=== PATIENT | female | born 2000 | race Caucasian/White ===

== ENCOUNTER 2019-11-28 21:43 | Emergency (ER) | payer OTHER ==
[~2019-11-28] VITALS: Ht 160 cm; Wt 53.1 kg
[2019-11-28] MEDS ORDERED: ENBRACE HR SOF1 EACH PO (21:55)
[2019-11-28] MEDS ORDERED: CLINDAMYCIN (21:56)
[2019-11-28] MEDS ORDERED: LORCET 5-325 M1 EACH PO (23:01)
[2019-11-28 23:18] VITALS: BP 122/76
== END 2019-11-28 23:19 | disposition home or self-care (01) ==
LOC: M.ERS 21:43
DX: L02.511 Cutaneous abscess of right hand (principal)